=== PATIENT | female | born 1955 | race Caucasian/White ===

== ENCOUNTER 2020-10-23 10:54 | Inpatient (IN) | payer OTHER, MEDICARE ==
[~2020-10-23] VITALS: Ht 160 cm; Wt 62.6 kg
--- NOTE | ~2020-10-23 | D ---
[facility] [place] [address] DISCHARGE SUMMARY Name: ARLEEN RODRIGUEZ Room #: 524B-B DIS IN M.R.#: [id number] Admission: 10/23/20 Attend Phys: Rajesh Mccall DO Discharge: 10/29/20 Date of : 55 Report #: [id number] THIS REPORT FOR: cc: FAM - Family physician unknown FAM - Family physician unknown Rajesh Mccall DO ~ DATE OF SERVICE: 10/29/2020 INPATIENT PSYCHIATRIC DISCHARGE SUMMARY ATTENDING PSYCHIATRIST: Rajesh Mccall DO. STRATEGY EXECUTION CONSULTANT: Dr. Pretty. DISCHARGE DIAGNOSES: As follows; alcoholic hallucinosis resolved and alcohol use disorder, severe degree. ADDITIONAL DIAGNOSES: As follows; leg wound, left leg chronic ____ wound clinic followup recommended. The patient should see her PCP initially for that as she lives in [facility], right thigh and left thigh rash, very small macules both thighs and Abena rash in groin mild, nystatin cream, tobacco use in remission, history of hypokalemia and hypomagnesemia. DISCHARGE PLAN: The patient is discharging to her home in [facility]. The patient will get addiction and general psychiatric care from help of the patient's brother going to who will pick her up at 4:00 p.m. today. The patient has an appointment with her PCP, Dr. Ollie Salazar on 11/04/2020 at 1600, intake with [facility] for substance use and mental health on 10/30/2020 at 9:00 a.m. DISCHARGE MEDICATIONS: Norvasc 2.5 mg oral daily for hypertension, gabapentin 300 mg oral 3 times a day for pain as well as prevention of alcohol relapse, Lasix 40 mg oral daily, vitamin oral daily, potassium chloride 20 mEq oral daily since she is on the Lasix. LABORATORY DATA: This admission from the , CBC: H and H 13.1 and 39.7, white count 7.0, and platelet count 358. Laboratories include sodium 137, potassium 4.1, chloride 105, bicarbonate 22, anion gap 10, BUN 27, creatinine 0.9, estimated GFR 63, glucose 84, calcium 8.5, and magnesium 2.1. Vitamin B12 level 354. Folate 9.5. TSH 3.382. Urinalysis is negative. REASON FOR ADMISSION: Back on the or so, the patient is a 65-year-old female sent from [facility]. Apparently, she had been brought to the care there from her brother. Dr. Edouard had seen her there, had found her grossly psychotic, confused, agitated, talking about God and unable to redirect. [address] [address] DISCHARGE SUMMARY Name: ARLEEN RODRIGUEZ [facility] Room #: 524B-B [facility] IN M.R.#: [id number] Admission: 10/23/20 Attend Phys: Rajesh Mccall DO Discharge: 10/29/20 Date of : 55 Report #: [id number] HOSPITAL COURSE: The patient was admitted to Geriatric Psychiatry Unit. She was placed on CIWA protocol for a few days. No alcohol withdrawal complications. I started her on Haldol 2 mg daily and titrated to 4 mg daily. We had essentially complete resolution of her psychotic symptoms. Initially, the patient cannot complete the [facility] Mental Status Examination. It was completed on Tuesday or Tuesday of this week. The patient scored 22/30. She also received a common evaluation of living skills from OT, which she did well on ____ concerns about her ability to function in the community. At the day of discharge, the patient was not suicidal or homicidal, felt to be safe for outpatient management. I did spend extra time addressing her substance use issues, namely alcoholism and advised her, her continuing to drink could likely progress her to dementia or , or severe disability from complications of alcoholism. Her brother has currently been sober 2-1/2 years as an alcoholic ____. PHYSICAL EXAMINATION: VITAL SIGNS: On the day of discharge are as follows: Temperature 36.3, pulse 75, respirations 16, BP 125/77, O2 sat 98%. MUSCULOSKELETAL: Using a wheelchair around the unit, does have hemiparesis, so does use an assistive device when she walks. MENTAL STATUS EXAMINATION: This is a well-developed, older than age-appearing female. Attention fair. Concentration is fair. Speech is normal, rhythm, tone. Thought process is linear and goal oriented. Thought content focused on discharge. No psychomotor agitation. No psychomotor retardation. Denied SI or HI. Denied hopelessness, helplessness. Denied auditory, visual, or tactile hallucinations. Memory not formally tested on the day of discharge. Insight fair. Judgment fair. Fund of knowledge, slightly below average. PROGNOSIS: Prognosis for this patient is guarded given her physical disability, which appears like it is from a stroke, but it is by family report due to fall as well as her alcoholism and some of the limitations where she lives geographically. By: 39 01 Rajesh Mccall, DO /nt
--- NOTE | 2020-10-23 17:54 | NUR ---
ADMITTED TO H UNIT AT 1640 VIA CART ACCOMPANIED BY [employer] FROM ED. TRANSFERED TO BED X 2 ASSIST PATIENT CLOSES EYES AND NOT FOLLOWING DIRECTION. PATIENTS BRIEF WET AND REMOVED AT THAT TIME. PATIENT IN BED OPENING AND CLOSING EYES. PATIENT WAS ABLE TO GIVE ME HER FULL NAME THEN CLOSES EYES AND DOES NOT ANSWER ANYMORE QUESTIONS. VS: BP193/118 P 108 R 18 T 99 SATS 99%. PATIENT NOTED WITH SCRATCHES TO LEFT ARM, BRUSING TO RIGHT ARM AND LEFT LEG WRAPPED. PICTURES TAKEN TO WOUNDS TO LEFT LEG. REDNESS TO RIGHT LEG WITH SLIGHT EDEMA. WHEN ASKED ABOUT WOUNDS AND HOW OBTAINED, PATIENT STATES "MONKEYS". RIGHT HAND CLOSED AND DOES NOT OPEN HAND ON COMMAND BED ALARM ON. HOSPITALIST NOTIFIED OF ADMIT AND BP ( DR WILKINS). DR WILKINS HERE TO SEE PATIENT, CLONIDINE 0.1 MG PO GIVEN AT 1835. PATIENT ATE 100% WITH ASSIST WILL CONTINUE TO OBSERVE EATING DINNER WITH ASSISTANCE.
[2020-10-23 20:01] VITALS: BP 156/94
[2020-10-24 00:20] VITALS: BP 156/94
--- NOTE | 2020-10-24 00:36 | NUR ---
ASSUMED CARE ON 10/23/20 @ 1900, IN BED, AWAKENED TO VOICE, COOPERATIVE WITH MEDICATION ADMINISTRATION, TAKING P.O. MEDS WHOLE WITH WATER. INCONTINENT OF BOWEL AND BLADDER. INCONTINENT CARE PROVIDED, ATIVAN 2MG PROVIDED @ 2014 FOR ANXIETY. CLONADINE 0.1 BROUGHT DOWN b/p TO 156/94 100. BED IN LOW POSITION, BED ALARM SET, WILL CONTINUE TO MONITOR PER UNIT PROTOCOL FOR SAFETY AND COMFORT.
[2020-10-24 08:00] VITALS: BP 149/91
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
--- NOTE | 2020-10-24 08:50 | NUR ---
ADM IBUPROPHEN 600MG PO FOR PAIN TO HER LEFT LEG.
[2020-10-24 10:17] VITALS: BP 149/91
--- NOTE | 2020-10-24 10:17 | NUR ---
Nutrition: pt admitted with [facility] unit with unspecified psychosis. New admission consult. PMH: HTN, GERD, CHF, LE cellulitis, gastric bypass. Left leg wound is wrapped. Also with left arm scratches, redness to right leg. Pt eating well, 100% of meals. Stable weights reported. Gastric bypass was over 10 years ago per pt. Meds include lasix, , thiamine, KCl. No labs to evaluate. Pt takes a protein drink at home, will offer ensure max daily. Consider low risk.
--- NOTE | 2020-10-24 15:40 | NUR ---
ADM LORAZEPAM 1MG PO FOR ANXIETY. PT STATED THERE WAS DRUGS IN THE TOILET AND DIDN'T WANT THIS FINANCIAL UNDERWRITER TO FLUSH THE TOILET. THE TOILET WAS CLEANED AND HAD BLUE TINT TO IT. PT WANTING THIS FINANCIAL UNDERWRITER TO CALL POLICE. PT TOOK MEDS WITHOUT ANY ISSUES.
[2020-10-24 20:00] VITALS: BP 142/86
[2020-10-24 20:20] VITALS: BP 142/86
--- NOTE | 2020-10-25 05:24 | NUR ---
PATIENT IS A/0X1. SHE HAS BEEN CALM AND COOPERATIVE AT TIMES AND HAS HAD 3 EPISODES OF WAKING AT NIGHT AND BEING DELUSIONAL. SHE BELIEVES SHE'S IN [place] AND GETS MAD IF YOU TELL HER SHE'S IN THE HOSPITAL. SHE WAS WANTING HER CELL PHONE TO MAKE CALLS IN THE MIDDLE OF THE NIGHT AND WAS ANGRY WHEN TOLD SHE COULD NOT HAVE IT AND WHY. SHE ARGUES WITH COLLATERAL ANALYST'S WHEN THEY TELL HER IT'S NIGHT TIME SHE STATES SHE SEE'S DAYLIGHT OUTSIDE. SHE IS UP TO BSC WITH ASSIST X 2. SHE'S HAD SLIGHT TREMORS IN HER HANDS AT TIMES TONIGHT. SHE HAS HAD LORAZEPAM 1MG TWICE TONIGHT PRN. SHE IS WANTING TO TALK WITH THE DOCTOR IN THE MORNING. SHE STATES SHE HAS ALOT OF BUSINESS SHE NEEDS TO TAKE CARE OF AND WE CAN'T HELP HER. BED IN LOW POSITION AND BED ALARM IS ON. WC BY BEDSIDE AND SIDE RAILS UP X 3. ROUTINE ROUNDS TO ASSESS SAFETY AND STATUS OF PATIENT.
[2020-10-25 08:40] VITALS: BP 161/87
--- NOTE | 2020-10-25 09:09 | NUR ---
ADM KDUR 20MEQ X1 PO PER ORDERS.
--- NOTE | 2020-10-25 09:09 | NUR ---
PT ALERT THIS AM. PT HAS DRESSING TO LLE. CLEANED AREA WITH SALINE, APPLIED ZEROFORM DRESSING AND WRAPPED WITH KERLEX AND SECURED WITH TAPE. PT HAS ALSO RAISED AREAS TO RT EXTREMITY. PT HAS WEAKNESS TO RUE. PT NEEDS ASSISTANCE WITH TRANSFERING X1-2 PERSONS. PT HAD BM THIS AM SOFT IN TEXTURE.
[2020-10-25 09:12] LABS: HEMATOCRIT 39.7 % (37.0-47.0); HEMOGLOBIN 13.1 gm/dL (12.0-15.0); MCH 31.5 pg (26.0-34.0); MCHC 32.9 g/dL (28.0-37.0); MCV 95.9 fL (80.0-100.0); PLATELET COUNT 358 thou/uL (150-400); RBC 4.14 mil/uL (4.20-5.00); RDW 14.3 % (10.5-14.5)
[2020-10-25 09:16] VITALS: BP 161/87
[2020-10-25 09:39] LABS: ALBUMIN 3.4 g/dL (3.4-5.0); CALCIUM 9.4 mg/dL (8.5-10.1); MAGNESIUM 1.6 mg/dL (1.8-2.4); POTASSIUM 3.1 mmol/L (3.5-5.1); TOTAL BILIRUBIN 0.4 mg/dL (0.2-1.0); TOTAL PROTEIN 7.2 g/dL (6.4-8.2)
[2020-10-25 10:52] LABS: ABSOLUTE NEUTROPHILS 3.2 thou/uL (1.4-8.2)
[2020-10-25 10:53] LABS: ANISOCYTOSIS SLIGHT
--- NOTE | 2020-10-25 11:32 | EKG ---
[place] [address] [facility] [place] [address] ELECTROCARDIOGRAM REPORT Name: ARLEEN RODRIGUEZ BALTAZAR Room #: 52- ADM IN ..#: [id number] Admission: 10/23/20 Attend Phys: Rajesh Mccall DO Discharge: Date of : 55 Report #: [id number] [facility] Test Date: 2020-10-25 Test Time: 09:24:37 Pat Name: ARLEEN RODRIGUEZ Department: Room: 52 A Gender: F Vp Biology: AFSHAN : 1955 Requested By: Amber Krishna Order Number: [id number] MD: James Max Measurements Intervals [place] Rate: 87 P: 41 ID: [id number] QRS: -10 QRSD: 77 T: 34 QT: 357 QTc: 430 Interpretive Statements Sinus rhythm Probable anteroseptal infarct, old No previous ECG available for comparison Electronically Signed On 10-25-2020 11:32:09 WATER POLLUTION SPECIALIST by James Max [email or web address] <ELECTRONICALLY SIGNED> By: James Max MD, [facility] 10/25/20 1132 0924 3 James Max MD, FACC /EPI
--- NOTE | 2020-10-25 12:40 | NUR ---
ADM IBUPROPHEN 600MG PO FOR PAIN TO LEFT LEG OF 7 ON 1-10 SCALE.
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
--- NOTE | 2020-10-25 18:00 | NUR ---
PT HAS HAD A GOOD DAY TODAY. PT ABLE TO STAY IN W/C AND ASK FOR ASSISTANCE WITH TRANSFERS. PT DID HAVE SOME WHELPS APPEAR TO LEFT ARM, PT DENIES ANY SOA OR THROAT TIGHTNESS. DR. FALK SEE RASH ON ARMS.
--- NOTE | 2020-10-25 18:29 | NUR ---
ADM HYDROXYZINE 25MG PO FOR REDDNESS TO ARMS.
[2020-10-25 20:00] VITALS: BP 130/81
[2020-10-25 22:22] VITALS: BP 130/81
--- NOTE | 2020-10-26 04:19 | NUR ---
ASSESSMENT: PT REMAIN ALERT AND ORIENT TIMES FOUR. UP WITH ASSISTANCE OF TWO TO BSC. RIGHT UPPER AND LOWER EXTREMITIES WEAK, FOOT AND HAND ON THE RIGHT SIDE WEAK/STIFF. UPPER LEFT THIGH NOTED WITH DRESSING D/I. TYLENOL GIVEN FOR GENERALIZED PAIN. ADEQUATE RELIEF PER PT. WEARS BRIEFS, NO BM. UPPER EXTREMITIES NOTED WITH SMALL BUMPS AND REDNESS. PT STATES THAT CEPHALEXIN IS THE CAUSE AND REFUSED TO TAKE THIS MEDICATION. CLOPRIMAZOLE CREAM APPLIED TO AFFECTED AREA. ACCORDING TO PT, THIS AREA IS LOOKING BETTER THAN THE DAY BEFORE. COMPLIANT WITH TAKING OTHER MEDICATIONS. SLOW PROGRESS TOWARDS DC GOALS. WILL CONTINUE TO MONITOR.
[2020-10-26 05:37] LABS: CALCIUM 8.5 mg/dL (8.5-10.1); POTASSIUM 3.1 mmol/L (3.5-5.1)
[2020-10-26 11:28] VITALS: BP 119/75
[2020-10-26 19:48] VITALS: BP 113/71
[2020-10-26 21:40] LABS: FOLIC ACID 9.5 ng/mL (8.6-58.9)
--- NOTE | 2020-10-27 05:14 | NUR ---
RECIEVED CARE OF THIS PATIENT AT 1900. ALERT AND ORIENTED TO PERSON AND PLACE. C/O PAIN, MED GIVEN. RASH ON ALL EXT. CREAM APPLIED. C/O ITICHING, MED GIVEN. KODI LOWER EXT EDEMATOUS. SLEPT MOST OF THE NIGHT.
[2020-10-27 05:49] LABS: CALCIUM 8.5 mg/dL (8.5-10.1); CREATININE 0.9 mg/dL (0.6-1.0); MAGNESIUM 2.1 mg/dL (1.8-2.4); POTASSIUM 4.1 mmol/L (3.5-5.1)
--- NOTE | 2020-10-27 10:41 | NUR ---
SW reviewed pt's 96 hour hold. It began on 10/23 @1645 and will end on 10/29 @1644. It was discussed in treatment team that pt possibly suffers from dementia. SW team will continue to follow pt during her stay on this unit.
[2020-10-27 11:45] VITALS: BP 102/62
[2020-10-27 14:11] LABS: URINE BILIRUBIN NEGATIVE (Negative); URINE BLOOD NEGATIVE (Negative); URINE CLARITY CLEAR; URINE COLOR YELLOW; URINE GLUCOSE-RANDOM* NEGATIVE (Negative); URINE KETONES NEGATIVE (Negative); URINE LEUKOCYTES-REFLEX NEGATIVE (Negative); URINE NITRITE-REFLEX NEGATIVE (Negative); URINE PROTEIN (DIPSTICK) NEGATIVE (Negative); URINE UROBILINOGEN 0.2 E.U./dl (0.2-1.0)
--- NOTE | 2020-10-27 18:32 | NUR ---
Assumed pt care at 0700. pt was alert and oriented x4. ASSessments completed, VSS. pt denies si/hi, c/o pain, tylenol given at 1837. ambulates with a w/c. urinalysis collected and sent to lab. participated in group. calm and co-operative with care. took medication whole, no difficulty noted. will continue to monitor.
[2020-10-27 19:40] VITALS: BP 138/76
[2020-10-28 00:27] VITALS: BP 138/76
[2020-10-28 07:00] VITALS: BP 109/71
--- NOTE | 2020-10-28 07:41 | NUR ---
Assumed care on 10/27/20 @ 1900, ambulates via w/c, is weak on the right side both upper and lower extremities. Allergies to Lisinopril, cephalexin, tetracycline. A&Ox3, cooperative with care. BM on 10/27/20 soft formed via BSC. IBUprophen provided @ 2355 on 10/27 for leg pain of 3/10. Bed in low position, bed alarm set. Monitoring as per unit protocol for safety and comfort.
--- NOTE | 2020-10-28 14:53 | NUR ---
LUNA called Pt's brother, Clinton Watson, concerning discharge. Clinton stated he would be able to come pick Pt up at discharge but was not sure about the time. Clinton stated he would call LUNA back with the time. D/C set for 10/29/2020 Pt has the following appts: PCP- Dr. Ollie Salazar 11/04/20 @1600 Intake with [facility] for substance use and mental health 10/30/2020 9am.
--- NOTE | 2020-10-28 17:30 | NUR ---
PATIENT WAS UP IN WHEELCHAIR, AND OUT ON THE UNIT WHEN CARE ASSUMED. SHE IS ABLE TO PROPEL SELF. PATIENT IS ALERT, AND ORIENTED X 3-4, ABLE TO VOICE NEED. PATIENT TOOK MORNING MEDICATION WHOLE WITHOUT DIFFICULTY. SHE IS EATING MEALS, AND DRINKING FLUID WELL. PATIENT DENIES SUICIDAL/HOMICIDAL IDEATION. SHE RATES DEPRESSION 5/10, DENIES ANXIETY. PRN IBUPROFEN 400MG GIVEN FOR LOWER BACK PAIN OF 8/10, PAIN DECREASED TO 5/10 UPON REASSESSMENT. DRESSING TO LEFT LOWER EXTREMITY CHANGED. AFFECT IS EUTHYMIC, MOOD IS CALM. PATIENT IS LOOKING FORWARD TO DISCHARGING TOMORROW. NO SIGN OF ACUTE DISTRESS NOTED AT THIS TIME, WILL MONITOR FOR SAFETY.
[2020-10-28 23:58] VITALS: BP 109/71
--- NOTE | 2020-10-29 01:48 | NUR ---
Assumed care on 10/28/20 @ 1900, In her bedroom in bed, A&Ox3-4, pleasant affect, cooperated with assessment. This nurse spoke to patient's brother on the phone, he plans to sweet pickle maker patient when she discharges on 10/29. Brother wishes to speak to the doctor and criminal justice social worker before patient's discharge. Compliant with medication administration, taking p.o. meds whole with water. Denies SI/HI/AH/VH. Sleeping in bed with bed in low position, bed alarm set and rounding as per unit protocol.
[2020-10-29 07:30] VITALS: BP 118/75
[2020-10-29] MEDS ORDERED: NORVASC5 MG PO (09:34)
[2020-10-29] MEDS ORDERED: LASIX 40 MG TAB40 M1 PO (09:35)
[2020-10-29] MEDS ORDERED: NEURONTIN 300M300 M2 PO (09:35)
[2020-10-29] MEDS ORDERED: KLOR-CON M2020 MEQ PO (09:36)
[2020-10-29] MEDS ORDERED: PRENATAL PO (09:36)
[2020-10-29 09:48] VITALS: BP 125/77
[2020-10-29 10:11] VITALS: BP 125/77
[2020-10-29] MEDS ORDERED: MEDROL4 M1 PO (11:42)
--- NOTE | 2020-10-29 12:16 | NUR ---
LUNA contacted pt's brother who confirmed he will come get her at 1400 today. LUNA team will continue to follow pt during her stay on this unit.
--- NOTE | 2020-10-29 15:03 | NUR ---
0700 ASSUMED CARE OF PATIENT. PATIENT IN WC PROPELLING SELF WITHOUT DIFFICULTIES. LS CLEAR, BS ACTIVE. MEDICATION TAKEN WHOLE WITHOUT DIFFICULTY. AFTER PATIENT ATE BREAKFAST PATIENT VOMITED. PATIENT NOTIFIED STAFF, PATIENT CLEANE UP AND STATES FEELING BETTER. DR WILKINS AND DR PEREZ NOTIFIED. PATIENT DENIES NAUSEA AFTER VOMITING. DC INSTRUCTIONS GIVEN, PATIENT VOICED UNDERSTANDING. PATIENT C/O ITCHING, ONE TIME ORDER OF BENADRYL GIVEN PER DR'S ORDER. PATIENT C/O BACK PAIN IBUPROFEN 200MG PO GIVEN AT 1420 WITH SCHEDULAED MEDICATION FOR 1500. PATIENT RIDE ARRIVED AND PATIENT DC AT 1430 VIA WC ACCOMPANIED BY SHADOWGRAPH SCALE OPERATOR TO FAMILY VEHICLE. BELONGING IN HAND. PATIENT TRANSFERED TO VEHICLE.
== END 2020-10-29 14:30 | disposition home or self-care (01) | DRG 885 ==
LOC: SBH 10:54
PROVIDERS: Internal Medicine; Psychiatry & Neurology Psychiatry; ADMIT Psychiatry & Neurology Psychiatry; ATTEND Psychiatry & Neurology Psychiatry
DX: F23 Brief psychotic disorder (principal); I11.0 Hypertensive heart disease with heart failure; I69.851 Hemiplegia and hemiparesis following other cerebrovascular disease affecting right dominant side; F10.951 Alcohol use, unspecified with alcohol-induced psychotic disorder with hallucinations; E87.6 Hypokalemia; E83.42 Hypomagnesemia; I50.9 Heart failure, unspecified; K21.9 Gastro-esophageal reflux disease without esophagitis; R41.9 Unspecified symptoms and signs involving cognitive functions and awareness; M54.9 Dorsalgia, unspecified; R21 Rash and other nonspecific skin eruption; I95.9 Hypotension, unspecified; G89.4 Chronic pain syndrome; Z98.1 Arthrodesis status; Z98.84 Bariatric surgery status; Z79.899 Other long term (current) drug therapy; Z90.49 Acquired absence of other specified parts of digestive tract; Z88.1 Allergy status to other antibiotic agents; Z88.8 Allergy status to other drugs, medicaments and biological substances; Z90.710 Acquired absence of both cervix and uterus
CPT/HCPCS: 10880